=== PATIENT | male | born 1975 | race Caucasian/White ===

== ENCOUNTER 2017-10-26 18:02 | Observation (INO) | payer SELFPAY ==
[~2017-10-26] VITALS: Ht 182.9 cm; Wt 100.7 kg
[2017-10-26] MEDS ORDERED: SODIUM CHLORIDE 0.9% 1000ML 1,000 ML IV SCH (19:15)
--- NOTE | 2017-10-26 19:32 | Diagnostic Imaging Report ---
EXAMINATION: CHEST SINGLE (PORTABLE) 10/26/2017 6:31 PM COMPARISON: None INDICATION: Chest pain DISCUSSION: LINES: None. LUNGS: The lungs are well inflated and clear. No pneumonia or pulmonary edema. PLEURA: No pleural effusion or pneumothorax. HEART AND MEDIASTINUM: The cardiomediastinal silhouette is unremarkable. BONES AND SOFT TISSUES: No acute osseous lesion. The soft tissues are normal. IMPRESSION: No acute cardiopulmonary disease. Avinash Adan MD Signed by: Dr. Avinash Adan M.D. on 10/26/2017 7:28 PM
[2017-10-26 19:33] LABS: BASOPHILS % 0.2 % (0.0-1.0); EOSINOPHILS % 0.1 % (0.0-6.0); HEMATOCRIT 45.2 % (38.2-49.6); HEMOGLOBIN 16.5 g/dL (14.0-18.0); LYMPHOCYTES # (AUTO) 2.4 (1.0-3.2); LYMPHOCYTES % 20.1 % (18.0-39.1); MEAN CORPUSCULAR HEMOGLOBIN 32.6 pg (28-32); MEAN CORPUSCULAR HGB CONC 36.5 g/dL (31-35); MEAN CORPUSCULAR VOLUME 89.3 fL (81-99); MONOCYTES # (AUTO) 1.4 (0.2-0.8); MONOCYTES % 11.7 % (4.4-11.3); NEUTROPHILS # (AUTO) 8.2 (2.1-6.9); NEUTROPHILS % 67.6 % (38.7-80.0); PLATELET COUNT 228 x10e3/uL (140-360); RED BLOOD COUNT 5.06 x10e6/uL (4.3-5.7); RED CELL DISTRIBUTION WIDTH 12.5 % (11.7-14.4)
[2017-10-26 19:50] LABS: ALBUMIN 4.5 g/dL (3.5-5.0); ANION GAP 19.8 mmol/L (8-16); CALCIUM 10.1 mg/dL (8.4-10.2); CREATININE, SERUM 2.51 mg/dL (0.72-1.25)
[2017-10-26 19:56] LABS: CREATINE KINASE MB 1.5 ng/mL (0-5.0); POTASSIUM 2.8 mmol/L (3.5-5.1)
[2017-10-26] MEDS ORDERED: POTASSIUM CHLORIDE 20 MEQ TAB CR PO STA (19:59)
[2017-10-26] MEDS ORDERED: KCL 20MEQ/.9 SOD CHL 1,000 ML IV ONE (20:00)
[2017-10-26 20:04] LABS: CLARITY,URINE CLOUDY (CLEAR); COLOR,URINE YELLOW (YELLOW)
[2017-10-26 20:05] LABS: KETONES,URINE 1+ (NEGATIVE); LEUKOCYTE ESTERASE ,URINE NEGATIVE (NEGATIVE); NITRITE,URINE NEGATIVE (NEGATIVE); PROTEIN,URINE DIPSTICK 1+ (NEGATIVE)
[2017-10-26 20:06] LABS: BILIRUBIN,URINE 1+ (NEGATIVE); URINE UROBILINOGEN 1 mg/dL (0.2 - 1)
[2017-10-26 20:10] LABS: BACTERIA,URINE FEW /HPF; EPITHELIAL CELLS,URINE RARE /LPF; RBC,URINE 0-5 /HPF (0-5); WBC,URINE (MAN) 0-5 /HPF (0-5)
[2017-10-26] MEDS ORDERED: ONDANSETRON HCL INJ 2 MG/ML VIAL IV STA (20:49)
[2017-10-26] MEDS ORDERED: POTASSIUM CHLORIDE 20MEQ/100ML 200 ML IV ONE (21:30)
[2017-10-26] MEDS ORDERED: ONDANSETRON HCL INJ 2 MG/ML VIAL IV PRN (21:30)
[2017-10-26] MEDS ORDERED: MORPHINE SULFATE 2 MG/ML SYR IV PRN (21:30)
[2017-10-26] MEDS: SODIUM CHLORIDE 0.9% 1000ML 1,000 ML IV SCH (23:00)
[2017-10-27] MEDS: SODIUM CHLORIDE 0.9% 1000ML 1,000 ML IV SCH ×2 (04:13→05:54)
[2017-10-27 05:23] LABS: BASOPHILS % 0.4 % (0.0-1.0); EOSINOPHILS # (AUTO) 0.1 (0.0-0.4); EOSINOPHILS % 1.6 % (0.0-6.0); HEMATOCRIT 37.4 % (38.2-49.6); HEMOGLOBIN 13.1 g/dL (14.0-18.0); LYMPHOCYTES # (AUTO) 2.9 (1.0-3.2); LYMPHOCYTES % 37.6 % (18.0-39.1); MEAN CORPUSCULAR HEMOGLOBIN 32.2 pg (28-32); MEAN CORPUSCULAR VOLUME 91.9 fL (81-99); MONOCYTES % 13.4 % (4.4-11.3); NEUTROPHILS # (AUTO) 3.6 (2.1-6.9); NEUTROPHILS % 46.7 % (38.7-80.0); PLATELET COUNT 172 x10e3/uL (140-360); RED BLOOD COUNT 4.07 x10e6/uL (4.3-5.7); RED CELL DISTRIBUTION WIDTH 12.9 % (11.7-14.4)
[2017-10-27 06:04] LABS: ANION GAP 11.2 mmol/L (8-16); CREATININE, SERUM 1.42 mg/dL (0.72-1.25); POTASSIUM 3.2 mmol/L (3.5-5.1)
[2017-10-27] MEDS ORDERED: POTASSIUM CHLORIDE 10MEQ/100ML 200 ML IV ONE (06:15)
[2017-10-27] MEDS ORDERED: POTASSIUM CHLORIDE 20MEQ/100ML 100 ML ONE (06:19)
[2017-10-27] MEDS ORDERED: POTASSIUM CHLORIDE 20MEQ/100ML 100 ML IV ONE (06:30)
[2017-10-27 09:02] LABS: ANION GAP 11.4 mmol/L (8-16); CALCIUM 8.3 mg/dL (8.4-10.2); CREATININE, SERUM 1.38 mg/dL (0.72-1.25); POTASSIUM 3.4 mmol/L (3.5-5.1)
[2017-10-27 10:00] VITALS: BP 115/73
[2017-10-27 10:05] VITALS: BP 114/71
[2017-10-27] MEDS ORDERED: OYST-CAL-D 500MG TABLET PO SCH (10:15)
[2017-10-27] MEDS ORDERED: POTASSIUM CHLORIDE 20 MEQ TAB CR PO NR (10:30)
[2017-10-27 10:50] VITALS: BP 114/71
[2017-10-27 11:50] VITALS: BP 130/77
[2017-10-27] MEDS ORDERED: FAMOTIDINE 20 MG TAB PO SCH (16:30)
--- NOTE | 2017-10-28 00:40 | Discharge Summary ---
ADMISSION DIAGNOSES: 1. Rhabdomyolysis. 2. Acute kidney injury. 3. Hyponatremia. 4. Hypokalemia. 5. Hypocalcemia. DISCHARGE DIAGNOSES: 1. Rhabdomyolysis. 2. Acute kidney injury. 3. Hyponatremia. 4. Hypokalemia. 5. Hypocalcemia. HISTORY: Patient has no medical history, and a surgical history of a right knee surgery and tonsillectomy. HOSPITAL COURSE: A 42-year-old male admitted status post syncopal episode while working outside on the . The patient remembers being dizzy and having bilateral lower extremity and abdominal cramping. He says his co-worker said he passed out, but he does not remember. He has had 2 similar episodes in the past while working outside. He claims to have drunk 10 to 15 bottles of water yesterday at work. On admission, CK was 450, creatinine was 2.51, sodium was 130, potassium was 2.8. Patient started on IV fluids. Creatinine came down to 1.38 with a GFR of 56. Sodium came up to 135 and potassium was 3.4 and repleted prior to discharge. Chest x-ray on admission was negative. Patient is instructed to continue to drink water and Gatorades at home and instructed to Gatorades or Powerades into his p.o. consumption while at work. Patient and understand discharge instructions and agreed to plan. He will follow up with primary care in 1 to 2 weeks. Dictated by Sara Mello NP HAYLEE LAWSON MD Job#: [id number]
== END 2017-10-27 12:30 | disposition home or self-care (01) ==
LOC: ER 18:02 → ERHOLD 22:03 → IMCU 10-27 10:15
PROVIDERS: ADMIT Internal Medicine; ATTEND Internal Medicine
DX: M62.82 Rhabdomyolysis (principal); E86.0 Dehydration; E87.6 Hypokalemia; Z88.0 Allergy status to penicillin; N17.9 Acute kidney failure, unspecified; E83.51 Hypocalcemia; E87.1 Hypo-osmolality and hyponatremia
CPT/HCPCS: 36415 ×2; 71045; 80048; 80053; 81001; 82550 ×2; 82553; 84484; 85025 ×2; 93005; 96374; 99284; G0378 ×2; J2270; J2405; J3480 ×2; J7030 ×2